=== PATIENT | female | born 1990 | race Hispanic/Latino ===

== ENCOUNTER 2017-01-16 20:17 | Emergency (ER) | payer OTHER ==
[~2017-01-16] VITALS: Ht 152.4 cm; Wt 72.7 kg
[~2017-01-16 20:17] MED LIST: HYDR-4003 PO; HYDR1TAB PO; METO-272 PO; POLY1PAC PO
[2017-01-16 20:34] VITALS: BP 150/97; PULSE 80; RESP 16; O2SAT 99
--- NOTE | 2017-01-16 20:47 | ED.REPORT ---
HPI-Headache Date of Service Jan 16, 2017 ED Provider: Elton Castellanos MD A 26 year old female with a history of migraines and hypertension presents to the ED complaining of a headache that began 3 days ago. Her current headache feels similar to her previous migraines but slightly more severe. Associated symptoms includes photophobia, nausea and visual disturbances. She describes the pain saying it feels as if she is being "punched" in the head. Patient was seen at the [facility] and received an unknown shot for her migraine which provided no relief. She was then sent to [facility] and experienced and adverse reaction to the medication she was given. Patient was then given Fioricet for her migraine which provided significant relief. She reports a recent UTI that resolved without intervention. Patient denies any recent head injury, fever, chills, vomiting or numbness/tingling in her extremities. Nursing Notes Stated Complaint: MIGRAINE Chief Complaint: Headache Nursing Notes Reviewed: Yes Allergies: Coded Allergies: No Known Allergies (Verified , 01/16/17) Scheduled Metoprolol Succinate ER (Metoprolol Succinate ER) 50 Mg Tab.er.24h 50 MG PO DAILY PEG 3350-Expunged Drug, Do Not Renew! (Miralax-Expunged Drug, Do Not Renew!) 17 Gm/Pkt Packet 17 GM PO DAILY Scheduled PRN Hydrocod/APAP-Expunged, Do Not Renew! (VICODIN 5/500-Expunged Drug, Do Not Renew ) 1 Udtab Tablet 1-2 TAB PO Q4 PRN PRN every 4-6 hours as needed for headache pain Hydrocodone-Acetaminophen 5-325 mg (Hydrocodone-Acetaminophen 5-325 mg) 1 Each Tablet 1 TABLET PO Q4H PRN PRN For Pain General Time Seen by MD: 20:41 Chief Complaint Migraine headache Hx Obtained From: Patient Arrived By: Walk-in Sudden in Onset?: No Onset Occurred: 3 days ago Symptom Duration: Since onset Location: : Generalized Quality: Aching, Pressure Radiation: : Does not radiate Severity: Current: Moderate Severity: Maximum: Moderate Pertinent Negative: Pt denies other symptoms Risk-Headache )( SAH Risk Stratification RF Statements: Risk factors N/A )( IC Mass Risk Stratification RF Statements: Risk factors N/A Past Medical History Past Medical History Notes: States unable to recall PCP, goes to [facility] Past Medical History Migraines Hypertension Past Surgical History Tubal ligation, hernia repair Smoking History Never Smoker Social History Alcohol Use: "Social" Drug Use: Denies drug use Other Social History: Good social support, Local resident Ambulatory Status Independent Review of Systems Constitutional: Denies: Chills, Fever Eyes: Reports: Photophobia GI: Reports: Nausea, Denies: Vomiting Neurologic: Reports: Headache, Denies: Numbness Complete sys rev & neg: except as marked. Physical Exam Initial Vital Signs Vital Signs (First) Date Time Temp Pulse Resp B/P Pulse Ox O2 Delivery O2 Flow Rate FiO2 01/16/17 20:34 36.7 80 16 150/97 99 Room Air Initial VS: Reviewed Extremities: Vascular intact, Neuro intact, No swelling, No tenderness Skin: Warm, Dry, No cyanosis Psychiatric: Mood/affect normal, Behavior normal, Normal thought content General/Constitutional: Awake, Alert, No acute distress, Well appearing, Well developed Head / Eyes: Atraumatic, Normocephalic, PERRL Pupils: Positive: Photophobia L, Photophobia R Neck: Atraumatic, Supple, Full range of motion Meningeal Signs / ROM: Negative: Nuchal rigidity present Neurologic: Oriented X3, Speech NL, No motor deficits, No sensory deficits, CN II - XII intact, Reflexes equal bilat, Cerebellar NL, Memory NL, Gait NL Respiratory / Chest: Atraumatic, No respiratory distress Cardiovascular: Peripheral circulation NL, Pulses = bilaterally Re-Eval/Medical Decision Re-Evaluation/Progress : Time of Eval: 21:41 )( Patient Status: Condition improved Re-Evaluation/Progress Note: Patient is rechecked. She reports that her headache has significantly improved but there is some moderate pressure still present. All questions about the intended treatment plan are addressed. She is agreeable to discharge at this time. Counseled Regarding: Diagnosis, Need for follow-up, When/why to return to ED Discharge & Departure Impression: Primary Impression: Migraine Migraine type: unspecified Status migrainosus presence: without status migrainosus Intractability: not intractable Qualified Code: G43.909 - Migraine, unspecified, not intractable, without status migrainosus Disposition: Home Discharge Condition All VS Reviewed: Yes Condition: Improved Patient Instructions: Migraine Headache (ED) Additional Instructions: Thank you for trusting us with your care this evening. Your emergency department evaluation today included interview and examination and I believe your headache is likely due to your chronic migraines. I recommend that you schedule a follow-up appointment with your primary care physician in the next 1-2 days for a recheck. Please take 800 mg of ibuprofen every 8 hours for pain. I have prescribed Fioricet, which is the medication I believe that was prescribed at the residency clinic that has been effective for you previously. This is the same medication we gave you while in the emergency department today. Please return to the emergency department for any new or worsening conditions including any worsening headaches, neck pain, persistent nausea, vomiting, fever or chills. Referrals: OTHER,PHYSICIAN (PCP) [facility] Scribe Attestation Portions of this note were transcribed by Velasquez Stroud. I, Dr. Castellanos personally performed the history, physical exam and medical decision-making; I reviewed and confirmed the accuracy of the information in the transcribed note. Signed by: Jorge Daniels, 01/17/17 0000. Elton Castellanos MD Jan 16, 2017 20:47 VELASQUEZ STROUD Jan 16, 2017 21:07
[2017-01-16] MEDS ORDERED: Butalbital-Acet-Caffeine Tablet PO ONE (20:55)
[2017-01-16] MEDS ORDERED: BUTA1CAP39 PO (22:09)
[2017-01-16 22:30] VITALS: BP 133/81; PULSE 59; RESP 18; O2SAT 100
== END 2017-01-16 22:19 | disposition home or self-care (01) ==
LOC: SED 20:17
DX: G43.109 Migraine with aura, not intractable, without status migrainosus (principal); I10 Essential (primary) hypertension

== ENCOUNTER 2017-02-12 17:07 | Emergency (ER) | payer OTHER ==
[~2017-02-12] VITALS: Ht 152.4 cm; Wt 72.7 kg
[~2017-02-12 17:07] MED LIST changes: +BUTA1CAP39 PO
[2017-02-12 17:32] VITALS: BP 149/81; PULSE 70; RESP 20; O2SAT 100
== END 2017-02-12 19:00 | disposition left against medical advice (07) ==
LOC: SED 17:07
DX: Z53.21 Procedure and treatment not carried out due to patient leaving prior to being seen by health care provider (principal)

== ENCOUNTER 2017-02-13 09:42 | Emergency (ER) | payer OTHER ==
[~2017-02-13] VITALS: Ht 152.4 cm; Wt 73.6 kg
[2017-02-13 09:51] VITALS: BP 134/84; PULSE 66; RESP 20; O2SAT 100
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
[2017-02-13 12:10] LABS: BASOPHILS % (AUTO) 0.5 % (0-3); MONOCYTES % (AUTO) 12.6 % (4-12); Mean Corpuscular Hemoglobin 30.6 pg (27.0-35.0); Mean Corpuscular Volume 89.1 fL (81-100); NEUTROPHILS % (AUTO) 37.4 % (40-74); Platelet Count 202 bil/L (150-400)
[2017-02-13 12:38] LABS: APPEARANCE,URINE CLEAR (CLEAR,HAZY); COLOR,URINE YELLOW (YELLOW); OCCULT BLOOD,URINE NEGATIVE (NEGATIVE); PH,URINE 7.5 (5.0-8.0); UROBILINOGEN,URINE NORMAL (NORMAL)
[2017-02-13 13:10] LABS: Lipase 26 U/L (13-60)
[2017-02-13 13:13] LABS: TROPONIN T < 0.010 ug/L (0.0-0.011)
[2017-02-13 14:39] VITALS: BP 126/78; PULSE 70; RESP 18; O2SAT 99
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
== END 2017-02-13 15:50 | disposition home or self-care (01) ==
LOC: SED 09:42
DX: S16.1XXA Strain of muscle, fascia and tendon at neck level, initial encounter (principal); V43.52XA Car driver injured in collision with other type car in traffic accident, initial encounter; Y93.9 Activity, unspecified; Y92.410 Unspecified street and highway as the place of occurrence of the external cause; Y99.8 Other external cause status; I10 Essential (primary) hypertension
CPT/HCPCS: 36415; 70450; 71020; 71260; 72125; 74177; 80053; 81001; 81002; 81025; 83690; 83735; 84484; 84703; 85025; 85610; 85730; 86850; 93005; 99285; G0480; Q9967